=== PATIENT | female | born 1980 | race Caucasian/White ===

== ENCOUNTER 2017-12-17 15:25 | Emergency (ER) | payer MEDICAID | END 2017-12-17 16:38 | disposition home or self-care (01) | LOC: FTE 15:25 → E/R 16:38 | DX: K11.21 Acute sialoadenitis (principal) | CPT/HCPCS: 99283; Z7502 ==

== ENCOUNTER 2018-05-06 18:46 | Emergency (ER) | payer MEDICAID ==
[2018-05-06] MEDS: IBUPROFEN 600 MG TAB PO (19:19)
== END 2018-05-06 21:02 | disposition home or self-care (01) ==
LOC: FTE 18:46
DX: M54.9 Dorsalgia, unspecified (principal)
CPT/HCPCS: 72040; 72072; 99283-25

== ENCOUNTER 2019-06-22 10:24 | Emergency (ER) | payer MEDICAID ==
[2019-06-22] MEDS: KETOROLAC 60 MG INJ IM (11:16)
== END 2019-06-22 11:29 | disposition home or self-care (01) ==
LOC: FTE 10:24
DX: M25.511 Pain in right shoulder (principal)
CPT/HCPCS: 81025; 96372; 99284-25